=== PATIENT | female | born 1985 | race African-American/Black ===

== ENCOUNTER 2016-08-17 10:53 | Emergency (ER) | payer SELFPAY ==
[~2016-08-17] VITALS: Ht 167.6 cm; Wt 108.9 kg
[~2016-08-17 10:53] MED LIST: PRE NATAL VIT
[2016-08-17 11:13] VITALS: BP 138/107
== END 2016-08-17 12:19 | disposition home or self-care (01) ==
LOC: ER 10:53
DX: H66.91 Otitis media, unspecified, right ear (principal); J20.9 Acute bronchitis, unspecified; J02.9 Acute pharyngitis, unspecified; R07.0 Pain in throat
CPT/HCPCS: 71020

== ENCOUNTER → 2017-09-20 | Outpatient (CLI) | payer MEDICAID | END | disposition home or self-care (01) | LOC: Rad HDHVI 13:58 | PROVIDERS: ATTEND Internal Medicine | DX: I07.1 Rheumatic tricuspid insufficiency (principal); E78.5 Hyperlipidemia, unspecified | CPT/HCPCS: 93306 ==

== ENCOUNTER → 2017-10-11 | Outpatient (CLI) | payer MEDICAID ==
[~2017-10-11] VITALS: Ht 30.5 cm; Wt 0.5 kg
[~2017-10-11] MED LIST changes: +ADENOSINE 90 MG/30 ML INJ IV ONE; +ADENOSINE 91 MG in GIVE UN-DILUTED 0 ML IV ONE
== END | disposition home or self-care (01) ==
LOC: Rad HDHVI 09:37
PROVIDERS: ATTEND Internal Medicine
DX: I10 Essential (primary) hypertension (principal); E11.9 Type 2 diabetes mellitus without complications; E03.9 Hypothyroidism, unspecified; R63.8 Other symptoms and signs concerning food and fluid intake; E78.5 Hyperlipidemia, unspecified
CPT/HCPCS: 78452; 93005; 96374; 96375; A9500; J0153